=== PATIENT | female | born 1995 | race Caucasian/White ===

== ENCOUNTER 2021-05-09 02:20 | Emergency (ER) | payer SELFPAY ==
[~2021-05-09] VITALS: Ht 152.4 cm; Wt 49.9 kg
[2021-05-09 02:20] VITALS: BP 144/71
--- NOTE | 2021-05-09 02:20 | NUR ---
0212 -- PREBOOK BIB CHP TO CHAIR C W/ STEADY GAIT.
[2021-05-09 02:40] VITALS: BP 144/71
--- NOTE | 2021-05-09 02:40 | NUR ---
PATIENT LEFT WITHOUT BEING SEEN BY DR. CHOU. NO FURTHER CARE PROVIDED FOR PATIENT.
== END 2021-05-09 02:40 | disposition left against medical advice (07) ==
LOC: MED 02:20 → EDBD 02:20 → MED 02:40
DX: Z04.1 Encounter for examination and observation following transport accident (principal); Z02.89 Encounter for other administrative examinations; Z53.21 Procedure and treatment not carried out due to patient leaving prior to being seen by health care provider; V89.2XXA Person injured in unspecified motor-vehicle accident, traffic, initial encounter; Y93.89 Activity, other specified; Y92.89 Other specified places as the place of occurrence of the external cause; Y99.8 Other external cause status